=== PATIENT | female | born 1990 | race African-American/Black ===

== ENCOUNTER 2016-06-21 18:44 | Inpatient (IN) | payer OTHER ==
[2016-06-21] MEDS ORDERED: STADOL IV PRN (19:04)
[2016-06-21] MEDS ORDERED: LR 500 ML IV ONE (19:04)
[2016-06-21] MEDS ORDERED: PEPCID IV PRN (19:04)
[2016-06-21] MEDS ORDERED: PEPCID PO ONE (19:04)
[2016-06-21] MEDS ORDERED: ZOFRAN IV PRN (19:04)
[2016-06-21] MEDS ORDERED: KEFZOL 1 GM/D5W 50 ML IV PRN (19:04)
[2016-06-21] MEDS ORDERED: REGLAN PO ONE (19:04)
[2016-06-21] MEDS ORDERED: PEPCID PO PRN (19:04)
[2016-06-21] MEDS ORDERED: TYLENOL PO PRN (19:04)
[2016-06-21] MEDS ORDERED: SODIUM CHLORIDE 0.9% INJ SCH (19:15)
[2016-06-21] MEDS ORDERED: PITOCIN 30 UNITS/LR 500 ML IV SCH (19:15)
[2016-06-21] MEDS: LR 1,000 ML IV SCH (19:30)
[2016-06-21] MEDS ORDERED: PITOCIN 20 UNITS/LR 1,000 ML ONE (21:03)
[2016-06-21] MEDS ORDERED: PERCOCET-5 PO PRN (21:06)
[2016-06-21] MEDS ORDERED: CYTOTEC PO PRN (21:06)
[2016-06-21] MEDS ORDERED: PERCOCET-10 PO PRN (21:06)
[2016-06-21] MEDS ORDERED: PITOCIN IM PRN (21:06)
[2016-06-21] MEDS ORDERED: HYDROXYZINE IM PRN (21:06)
[2016-06-21] MEDS ORDERED: NORCO-5 PO PRN (21:06)
[2016-06-21] MEDS ORDERED: BENADRYL IV PRN (21:06)
[2016-06-21] MEDS ORDERED: HYDROXYZINE PO PRN (21:06)
[2016-06-21] MEDS ORDERED: PITOCIN 30 UNITS/LR 500 ML IV ONE (21:06)
[2016-06-21] MEDS ORDERED: PERI MEDS (DERMOPLAST/NUPERCAINAL/TUCKS) MISC PRN (21:06)
[2016-06-21] MEDS ORDERED: BENADRYL PO PRN (21:06)
[2016-06-21] MEDS ORDERED: AMBIEN PO PRN (21:06)
[2016-06-21] MEDS ORDERED: BOOSTRIX VACCINE IM ONE (21:06)
[2016-06-21] MEDS ORDERED: M-M-R II VACCINE SUBQ ONE (21:06)
[2016-06-21] MEDS ORDERED: PITOCIN 20 UNITS/LR 1,000 ML IV SCH (21:15)
[2016-06-21 21:35] LABS: MANUAL DIFF NEEDED? NO
[2016-06-21 21:37] LABS: BASO% 0.2 % (0.0-0.8); EOS% 0.7 % (0.0-10.0); HEMATOCRIT 39.3 % (37.0-47.0); HEMOGLOBIN 13.5 g/dL (12.0-16.0); IMM GRAN% 0.7 % (0.0-0.5); LYMPH# 3.08 X1000 (1.2-3.4); LYMPH% 20.8 % (20.5-51.1); MCH 28.2 PG (27-31); MCHC 34.4 g/dL (33-37); MCV 82.2 FL (81-99); MONO# 1.18 X1000 (0.11-0.59); MPV 11.3 FL (7.4-10.4); NEUT% 69.6 % (42.2-75.2); PLT 357 X1000 (130-400); RBC 4.78 XMIL (4.2-5.4)
[2016-06-21] MEDS: MOTRIN PO PRN (22:38)
[2016-06-21] MEDS: NORCO-10 PO PRN (23:33)
[2016-06-22] MEDS: LR 1,000 ML IV SCH (05:43)
[2016-06-22 05:57] LABS: HEMATOCRIT 32.9 % (37.0-47.0); HEMOGLOBIN 10.9 g/dL (12.0-16.0); MCH 27.7 PG (27-31); MCHC 33.1 g/dL (33-37); MCV 83.5 FL (81-99); MPV 11.3 FL (7.4-10.4); RBC 3.94 XMIL (4.2-5.4)
[2016-06-22] MEDS: MOTRIN PO PRN ×2 (06:45→15:12)
[2016-06-22] MEDS: NORCO-10 PO PRN ×3 (06:45→20:09)
[2016-06-22] MEDS ORDERED: PERICOLACE PO SCH (21:00)
[2016-06-23 07:54] VITALS: BP 103/59
[2016-06-23] MEDS: MOTRIN PO PRN (13:26)
[2016-06-23] MEDS: NORCO-10 PO PRN (13:26)
== END 2016-06-23 18:20 | disposition home or self-care (01) | DRG 775 ==
LOC: P.OPLD 18:44 → P.LD 18:44 → P.OPLD 19:01 → P.LD 19:02
PROVIDERS: ADMIT Obstetrics & Gynecology; ATTEND Student in an Organized Health Care Education/Training Program
PROC: 10E0XZZ Delivery of Products of Conception, External Approach (ICD-10-PCS; principal; 2016-06-21)
DX: O99.334 Smoking (tobacco) complicating childbirth (principal); F17.210 Nicotine dependence, cigarettes, uncomplicated; Z37.0 Single live birth; Z3A.39 39 weeks gestation of pregnancy
CPT/HCPCS: 36415; 59025; 76815; 85025; 85027; 86592; 86762; J0595; J2590; J7120